=== PATIENT | female | born 1990 | race Caucasian/White ===

== ENCOUNTER 2021-05-30 08:57 | Emergency (ER) | payer SELFPAY ==
[2021-05-30 09:31] LABS: Bilirubin Neg (Negative); Blood, Urine Negative (Negative); Clarity Clear (Clear); Glucose, Urine (Dipstick) Normal (Negative); Ketone, Urine Negative (Negative); Leukocyte Negative (Negative); Nitrite Negative (Negative); Protein, Urine (Dipstick) Negative (Neg-Trace); Specific Gravity, Urine 1.015 (1.002-1.036); Urobilinogen Normal mg/dL (Less than 2)
[2021-05-30 09:34] LABS: #Basophils 0.1 10x3/uL (0.0-0.2); #Eosinphils 0.3 10x3/uL (0.0-0.5); #Monocytes 0.8 10x3/uL (0.0-1.1); #Neutrophils 8.4 10x3/uL (1.5-8.4); %Basophils 0.5 % (0.0-2.0); %Eosinophils 2.6 % (0.0-6.0); %Lymphocytes 25.3 % (18.0-47.0); %Monocytes 6.1 % (0.0-10.0); Hemoglobin 13.3 g/dL (12.0-15.5); Mean Corpuscular HGB CONC 33.1 g/dL (32.0-36.0); Mean Corpuscular Hemoglobin 29.3 pg (27.0-33.0); Mean Corpuscular Volume 88.5 fl (81.6-98.3); Mean Platelet Volume 8.9 fl (7.4-10.4); Platelet Count 388 10x3/uL (150-450); RBC Distribution Width 13.3 % (11.5-14.5); Red Blood Cell (RBC) Count 4.54 10x6/uL (3.90-5.03); White Blood Cell (WBC) Count 12.9 10x3/uL (3.5-10.5)
[2021-05-30 09:46] LABS: BHCG - Serum Negative (NEGATIVE); Pregs Control Background? CLEAR/WHITE (CLR/WHITE); Pregs Control Bar Appear? YES (CONTROL BAR)
[2021-05-30 09:54] LABS: ALT (SGPT) 27 U/L (8-55); AST (SGOT) 19 U/L (5-34); Albumin 3.7 g/dL (3.5-5.0); Alkaline Phosphatase 63 U/L (40-110); Anion Gap 12 mmol/L (10-20); BUN (Urea Nitrogen) 12 mg/dL (7.0-18.7); Bilirubin, Total 0.2 mg/dL (0.2-1.2); Calc. Creatinine Clearance 0 mL/min (70-130); Calcium 8.6 mg/dL (7.8-10.44); Carbon Dioxide 26 mmol/L (22-29); Chloride 105 mmol/L (98-107); Globulin 2.8 g/dL (2.4-3.5); Glucose 120 mg/dL (70-105); Potassium 3.9 mmol/L (3.5-5.1); Protein, Total 6.5 g/dL (6.0-8.3); Sodium 139 mmol/L (136-145)
== END 2021-05-30 11:26 | disposition home or self-care (01) ==
LOC: CSHERS 08:57
DX: R10.30 Lower abdominal pain, unspecified (principal); R11.0 Nausea; F17.210 Nicotine dependence, cigarettes, uncomplicated; G40.909 Epilepsy, unspecified, not intractable, without status epilepticus
CPT/HCPCS: 80053; 81003; 84703; 85025; 94760

== ENCOUNTER 2022-05-28 19:37 | Emergency (ER) | payer SELFPAY | END 2022-05-28 20:40 | disposition home or self-care (01) | LOC: CSHERS 19:37 | DX: B83.9 Helminthiasis, unspecified (principal); F17.210 Nicotine dependence, cigarettes, uncomplicated | CPT/HCPCS: 99282 ==

== ENCOUNTER 2022-06-26 14:16 | Emergency (ER) | payer SELFPAY ==
[2022-06-26] MEDS ORDERED: Ketorolac Tromethamine 30 MG/ML VIAL ONE (15:03)
== END 2022-06-26 15:10 | disposition home or self-care (01) ==
LOC: CSHERS 14:16
DX: M54.50 Low back pain, unspecified (principal); F17.210 Nicotine dependence, cigarettes, uncomplicated
CPT/HCPCS: 96372; 99283; J1885

== ENCOUNTER 2024-05-26 07:33 | Day surgery (SDC) | payer OTHER ==
[2024-05-26] MEDS ORDERED: Ibuprofen 400 MG TAB PO PRN ×2 (09:37)
[2024-05-26] MEDS ORDERED: Misoprostol 200 MCG TAB PR PRN (09:37)
[2024-05-26] MEDS ORDERED: Acetaminophen 325 MG (10.15 ML) UDCUP PO PRN (09:37)
[2024-05-26] MEDS ORDERED: PROPOFOL 20 ML ONE (09:42)
[2024-05-26] MEDS ORDERED: fentaNYL 50 mcg/mL 1 mL Vial ONE ×2 (09:43→11:45)
[2024-05-26] MEDS ORDERED: Midazolam HCl 2 mg/2 ml Vial ONE ×2 (09:43→10:53)
[2024-05-26] MEDS ORDERED: Tranexamic Acid 1,000 MG/10 ML VIAL ONE (09:44)
[2024-05-26] MEDS ORDERED: Misoprostol 200 MCG TAB ONE (09:44)
[2024-05-26] MEDS ORDERED: Carboprost 250 MCG/ML AMP ONE (09:45)
[2024-05-26] MEDS ORDERED: Lactated Ringer's 1,000 ML IV SCH (09:45)
[2024-05-26] MEDS ORDERED: Dexamethasone 4 mg/ml Vial ONE (09:45)
[2024-05-26] MEDS ORDERED: Ondansetron PF 4 MG/2 ML Vial ONE (09:45)
[2024-05-26] MEDS ORDERED: Doxycycline 100 MG CAP PO SCH ×2 (09:45→10:15)
[2024-05-26] MEDS ORDERED: Methylergonovine 0.2 MG/ML VIAL ONE (09:45)
[2024-05-26] MEDS ORDERED: Lidocaine 1% PF 5 ML VIAL ONE ×2 (09:45→10:32)
[2024-05-26] MEDS ORDERED: Ketorolac Tromethamine 30 MG (1 mL) VIAL ONE (11:16)
[2024-05-26] MEDS ORDERED: Meperidine HCl/PF 25 MG (1 mL) VIAL ONE (11:53)
[2024-05-26] MEDS ORDERED: diphenhydrAMINE 50 MG/ML VIAL ONE (12:03)
== END 2024-05-26 13:25 | disposition home or self-care (01) ==
LOC: CSHSDC 07:33
PROVIDERS: ATTEND Obstetrics & Gynecology
PROC: 10D17ZZ Extraction of Products of Conception, Retained, Via Natural or Artificial Opening (ICD-10-PCS; principal; 2024-05-26)
DX: O03.9 Complete or unspecified spontaneous abortion without complication (principal); Z88.6 Allergy status to analgesic agent; Z79.899 Other long term (current) drug therapy
CPT/HCPCS: 88305; J1100; J1200; J1885; J2175; J2210; J2250; J2405; J2704; J3010; J3490

== ENCOUNTER 2024-07-25 22:33 | Emergency (ER) | payer OTHER ==
[~2024-07-25 22:33] MED LIST: Iopamidol 370 76% 100 ML VIAL ONE
[2024-07-25 23:04] LABS: #Basophils 0.09 10x3/uL (0.0-0.2); #Eosinophils 0.72 10x3/uL (0.0-0.5); #Monocytes 1.18 10x3/uL (0.0-1.1); %Basophils 0.5 % (0.0-2.0); %Eosinophils 3.7 % (0.0-6.0); %Lymphocytes 15.7 % (18.0-47.0); %Neutrophils 73.7 % (40.0-75.0); Hematocrit 38.8 % (34.9-44.5); Hemoglobin 13.3 g/dL (12.0-15.5); Mean Corpuscular HGB CONC 34.3 g/dL (32.0-36.0); Mean Corpuscular Hemoglobin 29.8 pg (27.0-33.0); Mean Platelet Volume 8.9 fL (7.4-10.4); Platelet Count 354 10x3/uL (150-450); RBC Distribution Width 13.5 % (11.5-14.5); Red Blood Cell (RBC) Count 4.46 10x6/uL (3.90-5.03); White Blood Cell (WBC) Count 19.64 10x3/uL (3.5-10.5)
[2024-07-25 23:19] LABS: INR-International Normal Ratio 0.9; PTT 28.4 sec (22.0-33.0); Prothrombin Time 10.3 sec (9.5-12.1)
[2024-07-25 23:30] LABS: ALT (SGPT) 32 U/L (Less than 34); AST (SGOT) 21 U/L (11-34); Albumin 3.9 g/dL (3.1-4.5); Alcohol Less than 10.0 mg/dL (Less than 10); Alkaline Phosphatase 77 U/L (40-110); Anion Gap 17 mmol/L (10-20); BUN (Urea Nitrogen) 12 mg/dL (7.0-18.7); Bilirubin, Total 0.3 mg/dL (0.3-1.2); Calc. Creatinine Clearance 0 mL/min (70-130); Calcium 9.6 mg/dL (7.8-10.44); Carbon Dioxide 20 mmol/L (22-29); Chloride 109 mmol/L (98-107); Estimated GFR 98; Globulin 3.7 g/dL (2.4-3.5); Glucose 98 mg/dL (70-105); Potassium 3.8 mmol/L (3.5-5.1); Protein, Total 7.6 g/dL (6.0-8.3); Sodium 142 mmol/L (136-145)
[2024-07-25 23:36] LABS: Troponin I Less than 0.010 ng/mL (< 0.028)
[2024-07-26 00:22] LABS: Amphetamine Not Detected (NotDetected); Barbiturates Screen Not Detected (NotDetected); Benzodiazepine Screen Not Detected (NotDetected); Cocaine Metabolite Screen Not Detected (NotDetected); Methadone Not Detected (NotDetected); Methamphetamine Not Detected (NotDetected); Opiate Screen Not Detected (NotDetected); Oxycodone Screen Not Detected (NotDetected); Phencyclidine (PCP) Not Detected (NotDetected); THC/Cannabinoid Screen Not Detected (NotDetected); Tricyclic Screen Not Detected (NotDetected)
[2024-07-26] MEDS ORDERED: Aspirin Chewable 81 MG TAB ONE (00:37)
[2024-07-26] MEDS ORDERED: Clopidogrel Bisulfate 75 MG TAB ONE (00:37)
[2024-07-26] MEDS ORDERED: diphenhydrAMINE 50 MG/ML VIAL ONE (00:39)
[2024-07-26] MEDS ORDERED: Prochlorperazine 10 MG/2 ML VIAL ONE (00:39)
== END 2024-07-26 08:13 | disposition home or self-care (01) ==
LOC: CSHERS 22:33
DX: G81.92 Hemiplegia, unspecified affecting left dominant side (principal); R29.700 NIHSS score 0; G45.9 Transient cerebral ischemic attack, unspecified; Z79.82 Long term (current) use of aspirin
CPT/HCPCS: 0042T; 36416; 51701; 70450; 71045; 80053; 80306; 80307; 84484; 85025; 85610; 85730; 93005; 96374; 96375; J0780; J1200; Q9967

== ENCOUNTER 2025-04-09 20:48 | Emergency (ER) | payer OTHER ==
[2025-04-09 22:27] LABS: Glucose, Urine (Dipstick) Normal (Negative); Leukocyte Negative (Negative); Protein, Urine (Dipstick) Negative (Neg-Trace); Specific Gravity, Urine 1.015 (1.005-1.030)
[2025-04-09 22:28] LABS: Pregnancy Test - Urine (BHCG) Negative (Negative)
[2025-04-09 22:29] LABS: Pregu Control Background? CLEAR/WHITE (CLR/WHITE); Pregu Control Bar Appear? YES (CONTROL BAR)
[2025-04-09 22:34] LABS: Bacteria/HPF 1+ HPF (None Seen); CAUTI Indications for Culture Pelvic or flank pain; WBC/HPF None Seen HPF (0-3)
[2025-04-09 22:35] LABS: Urine Culture Reflex No No
[2025-04-09] MEDS ORDERED: Droperidol 5 MG/2 ML VIAL ONE (22:44)
[2025-04-09 22:45] LABS: #Basophils 0.04 10x3/uL (0.0-0.2); #Eosinophils 0.49 10x3/uL (0.0-0.5); #Monocytes 0.65 10x3/uL (0.0-1.1); #Neutrophils 5.53 10x3/uL (1.5-8.4); %Basophils 0.4 % (0.0-2.0); %Eosinophils 4.9 % (0.0-6.0); %Lymphocytes 33.0 % (18.0-47.0); %Monocytes 6.5 % (0.0-10.0); %Neutrophils 54.9 % (40.0-75.0); Hematocrit 38.6 % (34.9-44.5); Hemoglobin 13.2 g/dL (12.0-15.5); Mean Corpuscular Hemoglobin 30.5 pg (27.0-33.0); Mean Corpuscular Volume 89.1 fL (81.6-98.3); Platelet Count 330 10x3/uL (150-450); Red Blood Cell (RBC) Count 4.33 10x6/uL (3.90-5.03); White Blood Cell (WBC) Count 10.06 10x3/uL (3.5-10.5)
[2025-04-09 22:54] LABS: BHCG - Serum Negative (NEGATIVE); Pregs Control Background? CLEAR/WHITE (CLR/WHITE); Pregs Control Bar Appear? YES (CONTROL BAR)
[2025-04-09 23:01] LABS: ALT (SGPT) 32 U/L (Less than 34); AST (SGOT) 37 U/L (11-34); Albumin 4.0 g/dL (3.1-4.5); Alkaline Phosphatase 71 U/L (40-110); Anion Gap 13 mmol/L (10-20); BUN (Urea Nitrogen) 18 mg/dL (7.0-18.7); Bilirubin, Total 0.1 mg/dL (0.3-1.2); Calc. Creatinine Clearance 0 mL/min (70-130); Calcium 9.3 mg/dL (7.8-10.44); Carbon Dioxide 24 mmol/L (22-29); Chloride 107 mmol/L (98-107); Globulin 3.5 g/dL (2.4-3.5); Glucose 95 mg/dL (70-105); Lipase 79 U/L (8-78); Potassium 3.7 mmol/L (3.5-5.1); Sodium 140 mmol/L (136-145)
== END 2025-04-09 23:26 | disposition home or self-care (01) ==
LOC: CSHERS 20:48
DX: R10.9 Unspecified abdominal pain (principal); N94.89 Other specified conditions associated with female genital organs and menstrual cycle
CPT/HCPCS: 80053; 81001; 81025; 83690; 84703; 85025; 93005; 96374; J1790